=== PATIENT | female | born 1980 | race Caucasian/White ===

== ENCOUNTER → 2017-01-07 | Outpatient (CLI) | payer BC | END | disposition home or self-care (01) | LOC: C.PAPS 11:59 | PROVIDERS: ATTEND Obstetrics & Gynecology | DX: Z01.411 Encounter for gynecological examination (general) (routine) with abnormal findings (principal); R87.616 Satisfactory cervical smear but lacking transformation zone; Z87.42 Personal history of other diseases of the female genital tract ==

== ENCOUNTER → 2017-02-27 | Outpatient (CLI) | payer BC ==
--- NOTE | 2017-02-27 12:12 | DIAGNOSTIC IMAGING REPORT ---
ULTRASOUND OF THE PELVIS CLINICAL HISTORY: Right pelvic pain. Anal fissure. COMPARISON STUDY: No priors. TECHNIQUE: Real-time, grayscale, and color flow sonography of the pelvis is performed both transabdominally and endovaginally. Images are reviewed in the transverse and longitudinal planes. FINDINGS: Uterus: The uterus is normal in size and echotexture, measuring 9.6 x 3.9 x 4.6 cm. A section scar is suggested in the anterior lower uterine segment. Endometrium: The endometrium is normal in appearance, and the endometrial stripe is normal in thickness measuring up to 0.4 cm. Ovaries: The ovaries are normal in size and morphology. The right ovary measures 5.0 x 3.3 x 4.7 cm and the left ovary measures 2.6 x 2.6 x 2.5 cm. There is a 4.1 cm minimally complex right ovarian cyst. Additional smaller follicles are seen bilaterally. Normal Doppler waveforms are shown within both ovaries. Pelvis: There is trace free fluid in the cul-de-sac. No concerning adnexal lesion is seen. IMPRESSION: 1. No acute sonographic abnormality is identified in the pelvis. 2. There is a minimally complex right ovarian cyst which measures up to 4.1 cm. There is no sonographic evidence of ovarian torsion at the time of examination. 3. There is trace and likely physiologic free fluid in the cul-de-sac. Electronically signed by: Pierto Eagle M.D. 02/27/2017 12:11 PM Dictated Date/Time: 02/27/2017 12:04 PM
== END | disposition home or self-care (01) ==
LOC: C.ULTR 11:13
PROVIDERS: ATTEND Internal Medicine Gastroenterology
DX: R10.31 Right lower quadrant pain (principal); K60.2 Anal fissure, unspecified; N83.201 Unspecified ovarian cyst, right side

== ENCOUNTER → 2018-01-14 | Outpatient (CLI) | payer BC | END | disposition home or self-care (01) | LOC: C.PAPS 14:34 | PROVIDERS: ATTEND Obstetrics & Gynecology | DX: Z87.898 Personal history of other specified conditions (principal) ==